=== PATIENT | male | born 1965 | race Caucasian/White ===

== ENCOUNTER 2017-11-19 19:45 | Emergency (ER) | payer BC, OTHER ==
[2017-11-19 19:52] VITALS: BP 126/87; PULSE 62; TEMP 98.2; BMI 28.1
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
[2017-11-19] MEDS ORDERED: IBUPROFEN 400 MG TABLET (FP) PO ONE ×2 (19:55→20:03)
== END 2017-11-19 21:49 | disposition home or self-care (01) ==
LOC: FER 19:45
DX: S16.1XXA Strain of muscle, fascia and tendon at neck level, initial encounter (principal); S13.4XXA Sprain of ligaments of cervical spine, initial encounter; V43.02XA Car driver injured in collision with other type car in nontraffic accident, initial encounter; Y93.89 Activity, other specified; Y92.410 Unspecified street and highway as the place of occurrence of the external cause
CPT/HCPCS: 72050-TC; 99282-25